=== PATIENT | female | born 1930 | race Caucasian/White ===

== ENCOUNTER 2016-08-07 10:40 | Inpatient (IN) | payer MEDICARE, BC ==
[~2016-08-07] VITALS: Ht 170.2 cm; Wt 102.3 kg
--- NOTE | ~2016-08-07 | OR ---
ADMIT: 08/07/2016 RM/LOC: 314 [facility] MR#: [id number] [address] [address] [place] [address] Operative/Delivery Room Report SEX: F AGE: 85 : 1930 SURGERY DATE: 08/08/2016 SURGEON: Franchesca Avalos MD PREOPERATIVE DIAGNOSIS: Comminuted fracture, right distal femur. POSTOPERATIVE DIAGNOSIS: Comminuted fracture, right distal femur. PROCEDURE: Open reduction and internal fixation, comminuted right distal femur fracture. ANESTHESIA: General. ESTIMATED BLOOD LOSS: 700 mL. EXPORT SALES ASSISTANT: Kyle Moeller PA-C. SECOND CERTIFIED WELDER: ANGÉLICA Galloway. COMPLICATIONS: None. SPECIMEN: None. REPLACEMENT: One unit packed red blood cells. IMPLANT: Synthes 12-hole distal femoral locking plate. DESCRIPTION OF PROCEDURE: This patient was brought to the operating room after satisfactory level of general anesthesia, which was achieved. The patient was placed on the fracture table in the supine position. She was properly positioned. All bony prominences well padded. She was placed in traction, and using C-arm image intensifier, a preliminary close reduction was performed. The extremity was then prepped and draped in the usual sterile fashion. A lateral skin incision was used carrying my incision from the lateral joint line proximally in order to get at least 4 screws above the fracture site. The fracture was comminuted with a large anterolateral butterfly fragment with the instability of the fracture. I first placed a 12- hole plate over the distal femur positioning both AP and lateral planes. I then put in guidewires, which showed that I was parallel to the joint surface and properly positioned on the distal femur. I was then able to reduce the fracture to the plate and hold it with reduction clamps. AP and lateral C-arm images demonstrated a satisfactory reduction in addition to satisfactory position of the implant on both the AP and lateral C-arm images. I first filled all the distal screws and several through the distal metaphyseal area ADMIT: 08/07/2016 RM/LOC: 314 [facility] MR#: [id number] 2620 [facility] [address] [place] [phone] MARIYA DENT [place] [id number] Operative/Delivery Room Report SEX: F AGE: 85 : 1930 as well. Then, I placed 3 locking screws above the fracture site then a single cortical screw proximally. AP and lateral C-arm images then demonstrated a satisfactory reduction. I then placed several screws through the comminuted area lagging the comminuted butterfly fragment to the fracture fragment proximally and fracture fragment distally. Final AP and lateral C- arm images were obtained showing a good reduction and good position of the implant and with AP and lateral C-arm images. Permanent films were obtained, and after thorough irrigation of the wound, the wound was closed with #1 Vicryl in the vastus lateralis fascia, #1 Vicryl in the iliotibial band. Multiple layers of 2-0 Vicryl and subcutaneous tissue and ke in the skin. A sterile dressing was applied, and the patient was then placed in the knee immobilizer and transferred from the operative suite in stable condition. Franchesca Avalos MD/ pavithra JOB #: [id number] CC: Sergio Lees, Attending Physician Sergio Lees, Family Physician
--- NOTE | ~2016-08-07 | ECH ---
Transthoracic Echocardiography Report (TTE) Demographics Patient Name MARIYA DENT Date of Study 08/08/2016 M Patient Number [id number] Visit Number [id number] Date of 1930 Room Number 421 Accession Number [id number] Gender Female Age 85 year(s) Referring Alex Toney MD Sheltered Workshop Worker Maribell Hernandez [facility] Physician Yoana Augustine MD Physician Interpreting Alex Toney Hot Box Checker Physician Supervising Ordering Physician Alex Toney MD/MLP Nurse Stress Medical Transcription Radiology Conclusions Summary Technically difficult exam to perform due to patient supine. The estimated left ventricular ejection fraction is 65%. Mild mitral regurgitation by color Doppler. Aortic valve sclerosis with no hemodynamic significant stenosis. Mild tricuspid regurgitation by color Doppler. There is mild pulmonary hypertension. The pulmonary pressure (RVSP) is 38 mmHg. Procedure Type of Study TTE procedure:Echo Complete SF. Procedure Date Date: 08/08/2016 Start: 10:02 AM Technical Quality: Fair due to patient immobility. Indications:Pre surgical clearance. Additional Indications:EKG changes Height: 67 inches Weight: 194 pounds BSA: 2 m Rhythm: Irregular HR: 110 bpm BP: 124/49 mmHg M-Mode/2D Measurements LV Diastolic Dimension: 3.92 cm LV Systolic Dimension: 2.2 cm LV Septum Diastolic: 0.93 cm LV PW Diastolic: 1.01 cm AO Root Dimension: 2.6 cm Cardiac Output: 5.06 l/min LA Dimension: 3.74 cm Cardiac Index: 2.53 l/min*m RV Diastolic Dimension: 3.67 cm LA volume index: 28 ml/m LVOT: 1.74 cm LVOT VTI: 19.37 cm RV Base: 2.5 cm LV Stroke volume: 46.04 ml RV Length: 5.5 cm LV Stroke volume index: 23.02 ml/m Doppler Measurements AV Peak Velocity: 2.17 m/s MV Peak E-Wave: 1.23 m/s AV Peak Gradient: 18.84 mmHg AV Mean Gradient: 10.59 mmHg LVOT Peak Velocity: 1.12 m/s AV Area (Continuity):1.32 cm PV Peak Velocity: 1.2 m/s TR Velocity:2.85 m/s PV Peak Gradient: 5.79 mmHg TR Gradient:32.53 mmHg Estimated PASP: 37.53 mmHg Estimated RAP:5 mmHg Estimated RVSP: 38 mmHg RA Area: 12.35 cm Findings Left Ventricle The left ventricle is normal in size . Diastolic function indeterminate due to patient's arrhythmia. Right Ventricle Normal right ventricle structure and function. Left Atrium Normal left atrial size. Right Atrium Normal right atrial size. Mitral Valve Normal mitral valve structure and function. Mild mitral regurgitation by color Doppler. Aortic Valve The aortic valve was not well imaged seen best in subcostal view. The aortic valve is mildly sclerotic with peak velocity of 2.17m/s and mean gradient of 11mmHg. Tricuspid Valve Normal tricuspid valve structure and function. Mild tricuspid regurgitation by color Doppler. There is mild pulmonary hypertension. The pulmonary pressure (RVSP) is 38 mmHg. Pulmonic Valve The pulmonic valve is not well visualized. Pericardial Effusion No evidence of pericardial effusion. Miscellaneous Visualized portions of the aortic root and ascending aorta appear normal in size. Pleural Effusion No evidence of pleural effusion. Contractility Score LV regional wall motion:(0-Non visualized 1-Normal 2-Hypokinesis 3-Akinesis 4-Dyskinesis 5-Aneurysm) Signature
--- NOTE | 2016-08-07 19:12 | HP ---
ADMIT: 08/07/2016 RM/LOC: 521 [facility] MR#: [id number] [address] [facility] [address] [place] [phone] [place] [address] History and Physical SEX: F AGE: 85 : 1930 DATE OF SERVICE: CHIEF COMPLAINT: Fall. HISTORY OF PRESENT ILLNESS: The patient is a very poor historian. She has advanced dementia. She does have a son and [id number] at the bedside. They recently back in town from [place]. The exact events that led to this fracture are not known at this time to this physician as this history is not available. She was seen in outside ER at [facility] after a fall at her place of residence at [place]. She was diagnosed with a urinary tract infection as well as a right lower extremity fracture with a distal femur fracture. They do speak with orthopedics who accepts the patient to be transferred to the local ER here. They do see the patient and do an assessment and request that I admit the patient and they will consult. Therefore, I evaluated the patient at her bedside in room #5. She is severely demented and unable to give any substantial history. She does feel comfortable with a blood pressure cuff and does cause her some irritation. She, otherwise, is unable to give any further history. When you ask her where she is from she gives answers such as two days ago, this is her baseline. PAST MEDICAL HISTORY: 1. Alzheimer's dementia. 2. Arthritis. 3. History of gastrointestinal hemorrhage. 4. Essential hypertension. 5. Anxiety. 6. Pedal edema. 7. Hypothyroidism. 8. Muscle weakness. 9. Malnourishment. MEDICATIONS: 1. Zantac. 2. MiraLax. 3. Amoxicillin. 4. Synthroid. 5. Melatonin. 6. Ativan. 7. Tylenol. 8. Ocuvite. 9. Gabapentin. 10.FiberCon. 11.Seroquel. 12.Celexa. 13.Vitamin D. 14.Metoprolol. 15.Namenda. 16.Milk of magnesia. 17.Bisacodyl. ADMIT: 08/07/2016 RM/LOC: 521 [facility] MR#: [id number] [address] [facility] [address] [place], [place] [address] MARIYA DENT [place] [id number] History and Physical SEX: F AGE: 85 : 1930 18.Artificial Tears. ALLERGIES: HYDROXYCHLOROQUINE. FAMILY HISTORY: Unknown. The patient is unaware of any of her history. The son feels that he would have dementia. No known coronary artery disease. SOCIAL HISTORY: She lives in [place]. She does not drink, smoke, or do drugs. REVIEW OF SYSTEMS: Attempted to be obtained and is noted in the HPI. PHYSICAL EXAMINATION: VITAL SIGNS: Blood pressure is 134/81, pulse of 112, respiratory rate is 20, temperature is 96.2, she is 99% on supplemental O2. GENERAL: She is alert. She is oriented x1. Normocephalic and atraumatic. Eyes, extraocular muscles are intact. Pupils equal and responsive to light. No nasal discharge. NECK: Supple. HEART: Tachycardic. LUNGS: Clear to auscultation. ABDOMEN: Soft, nontender. EXTREMITIES: Right lower extremity in a knee immobilizer. LABORATORY DATA: Urinary is noted to have urinary tract infection. White blood cells are 9.7, hemoglobin is 12, platelets are 203. Sodium is 143, potassium is 4, chloride is 107, bicarb is 25, BUN is 22, creatinine is 1.25, glucose 124, calcium is 9.1, total bilirubin 0.2. AST is 25, ALT is 30, alkaline phosphatase is 90, total protein 6.7. ASSESSMENT AND PLAN: 1. Right distal femur fracture. 2. Alzheimer's dementia. 3. Urinary tract infection. 4. Hypovolemia. 5. Hypertension. EKGs read out as atrial flutter; however, I do not believe I agree with that ADMIT: 08/07/2016 RM/LOC: 521 [facility] MR#: [id number] [address] [facility] [address] [place] [phone] [place] [address] History and Physical SEX: F AGE: 85 : 1930 assessment. It looks like she does have potentially some PACs. We will go ahead and just give her a fluid bolus. Get her rehydrated. Give her some antibiotics. We will repeat her EKG. She will have her home medications placed on the chart. Discussed with the family that the nonelective nature of this surgery makes this inherently a high-risk situation. Based on this, she is at high risk for an intermediate risk procedure. We will go ahead and treat her comorbid conditions and get a followup EKG as well. I discussed this plan with the family, who expressed understanding, was in agreement, and had no further questions. Sergio Lees MD/ pavithra JOB #: [id number] CC: Sergio Lees, Attending Physician Sergio Lees, Family Physician Ba Velasco MD
--- NOTE | 2016-08-14 08:14 | CO ---
ADMIT: 08/07/2016 RM/LOC: 421 [facility] MR#: [id number] [address] [facility] [address] [place] [phone] [place] [address] Consultation Report SEX: F AGE: 85 : 1930 DATE OF CONSULTATION: 08/07/2016 ATTENDING PHYSICIAN: Sergio Lees CONSULTING PHYSICIAN: Franchesca Avalos MD CHIEF COMPLAINT: Right femur fracture. HISTORY OF PRESENT ILLNESS: This is an 85-year-old demented female who fell this morning in the bathroom and injured her right leg. She had immediate pain and deformity. She was evaluated up in Emergency Department at [place] with x-rays, diagnostic for right femur fracture, distal third around an existing total knee arthroplasty. She was splinted, stabilized, and transferred to [facility] for definitive orthopedic care. She has advanced Alzheimer dementia and is a poor historian. ALLERGIES: NO KNOWN MEDICAL ALLERGIES. MEDICATIONS: Per med list: 1. Ranitidine 150 mg daily. 2. MiraLAX daily. 3. Synthroid 200 mcg daily. 4. Melatonin 4 mg at bedtime. 5. Ativan 0.5 mg p.r.n. 6. Tylenol 325 mg q.4 p.r.n. 7. Gabapentin 100 mg in the evening. 8. Ocuvite daily. 9. FiberCon daily. 10.Seroquel 25 mg in the a.m. 50 mg at noon and in the p.m. 11.Celexa 20 mg daily. 12.Vitamin D with calcium daily. 13.Metoprolol 25 mg b.i.d. 14.Namenda 10 mg b.i.d. 15.Milk of magnesia p.r.n. 16.Artificial tears p.r.n. MEDICAL HISTORY: Alzheimer's dementia, essential hypertension, anxiety disorder, edema, hypothyroid, osteoarthritis, nutritional deficiency, memory impairment. SOCIAL HISTORY: She lives in [place] in a nursing facility. Nonsmoker and nondrinker. FAMILY HISTORY: Noncontributory. SURGICAL HISTORY: She has as history of right total knee arthroplasty back [place] [address] Topete. REVIEW OF SYSTEMS: Unable to acquire review of systems given the patient's ADMIT: 08/07/2016 RM/LOC: 421 [facility] MR#: [id number] [address] [facility] [address] [place] [phone] [place] [address] Consultation Report SEX: F AGE: 85 : 1930 advanced dementia. PHYSICAL EXAMINATION: GENERAL: This is an otherwise, comfortable appearing, pleasantly demented female who is lying comfortably in the gurney, in the room 5 of the Emergency Department. She is disoriented to place, time, and situation. EXTREMITIES: Exam of the right lower extremity shows that she is in a knee immobilizer. Removal of that shows that her skin is intact. She has moderate swelling about the thigh. She has obvious deformity of external rotation of the lower extremity. She has a well-healed surgical incision consistent with her previous history of total knee arthroplasty. She has pain with any motion. She can dorsi and plantar flex her foot and distinguish light touch, however, given her dementia and this is as far as we can take neurologic exam. SKIN: No open wounds. IMAGING: Reviewed previously obtained x-rays of the right femur showing a comminuted spiral sort of distal 3rd femur fracture that does extend crack down near the distal femur. Cemented total knee arthroplasty in place, appears to be otherwise well seated without complications. ASSESSMENT: Right femur fracture. PLAN: Admitted and stabilized medically by white metal corrosion proofer primary care. As long as she clears the preoperative exam, we would schedule her for open reduction and internal fixation of right femur fracture tomorrow with Dr. Avalos. I am going to repeat AP and lateral views to see if we can get a little bit better picture of the lateral view of the total knee component and see if the fracture extends any farther down. Otherwise it does appear as though the prosthesis is well seated without complication. EDIT: 08/08/2016 0507 njv Kyle Moeller PA-C / Franchesca Avalos MD / pavithra JOB #: [id number] CC: Sergio Lees, Attending Physician Sergio Lees, Family Physician
--- NOTE | 2016-08-15 17:46 | ER ---
ADMIT: 08/07/2016 RM/LOC: 521 [facility] MR#: [id number] [address] [address] [place] [address] Emergency Room Report SEX: F AGE: 85 : 1930 DATE: 08/07/2016 ADDENDUM: This patient comes into the ER because in the retirement today in [place] she fell and fractured her right femur. She was seen in the ER in [place], they did an x-ray, saw a spiral fracture and sent her to our emergency room to see Dr. Avalos. According to the retirement, she had no other injuries, and on physical exam, she is confused, which is normal for her, unable to tell me what occurred. She is tender in the right femur area, increased pain with movement. Pulses are equal bilaterally in the lower extremities. Sensation is intact. She did have normal blood work that came with her from the emergency room in [place]. Chest x-ray in our ER was negative. The patient was seen by Dr. Avalos and will be admitted by Dr. Lees. Please see their dictation for further treatment. ANGÉLICA Tomlinson / Sergio Law MD / tuliol JOB #: [id number] CC: Sergio Lees MD, Attending Physician Sergio Lees MD, Family Physician
[2016-08-16] MEDS ORDERED: CELEXA DPS20 MG PO (12:47)
[2016-08-16] MEDS ORDERED: ASA CHILDREN'S81 MG PO (12:47)
[2016-08-16] MEDS ORDERED: ELIQUIS2.5 MG PO (12:47)
[2016-08-16] MEDS ORDERED: CORDARONE DPS200 MG PO (12:47)
[2016-08-16] MEDS ORDERED: MIRALAX PACKET17 GM PO (12:48)
[2016-08-16] MEDS ORDERED: MELATONIN3 MG PO (12:48)
[2016-08-16] MEDS ORDERED: FIBERCON DPS625 MG PO (12:48)
[2016-08-16] MEDS ORDERED: LOPRESSOR DPS50 MG PO (12:48)
[2016-08-16] MEDS ORDERED: NAMENDA5 MG PO (12:49)
[2016-08-16] MEDS ORDERED: SENOKOT DPS8.6 MG PO (12:49)
[2016-08-16] MEDS ORDERED: PEPCID DPS20 MG PO (12:49)
[2016-08-16] MEDS ORDERED: SEROQUEL25 MG PO (12:49)
[2016-08-16] MEDS ORDERED: SYNTHROID DPS0.2 MG PO (12:50)
[2016-08-16] MEDS ORDERED: SEROQUEL50 MG PO (12:50)
[2016-08-16] MEDS ORDERED: THERAPEUTIC MUL1 TAB PO (12:50)
[2016-08-16] MEDS ORDERED: HYDROCODON-ACE1 EAC4 PO (12:51)
[2016-08-16] MEDS ORDERED: TYLENOL DPS325 MG PO (12:51)
[2016-08-16] MEDS ORDERED: DUONEB DPS3 ML IH (12:51)
[2016-08-16] MEDS ORDERED: DULCOLAX-DPS10 MG PR (12:51)
[2016-08-16] MEDS ORDERED: VIBRAMYCIN-DPS100 M2 PO (12:52)
[2016-08-16] MEDS ORDERED: AMOXICILLIN500 MG PO (12:53)
--- NOTE | 2016-08-21 18:07 | DS ---
ADMIT: 08/07/2016 RM/LOC: 420 [facility] MR#: [id number] 2620 [facility] [address] [place] [phone] [place] [address] Discharge Summary SEX: F AGE: 85 : 1930 ADMISSION DATE: 08/07/2016 DISCHARGE DATE: 08/15/2016 CONSULTATIONS: 1. Lukas Johnson M.D. with Cardiology. 2. Franchesca Avalos M.D. with Orthopedic Surgery. FINAL DIAGNOSES: 1. Right distal femur fracture. 2. Alzheimer's dementia. 3. Urinary tract infection. 4. Atrial fibrillation with RVR (rapid ventricular response). 5. Postoperative open reduction internal fixation right distal femur fracture. 6. Healthcare associated pneumonia. 7. Hypoxic respiratory failure. 8. Poor p.o. intake. 9. Hospice services. REASON FOR ADMISSION: Please see history and physical; however briefly, Melia is admitted for surgical intervention of a distal right femur fracture. HOSPITAL COURSE: She was admitted to the service of [facility] under the care of myself, Sergio Lees MD., diagnosed with a urinary tract infection as well as preoperative atrial fibrillation. She received cardiology consultation prior to OR. Did discuss the risks and benefits with family for surgical intervention as well as outcome expectations if no surgical intervention is completed. We do proceed to OR. The patient does develop the above diagnoses postoperatively. She actually improves nicely through the postoperative events; however, she was critical at various occasions. She does stabilize; however, Melia no longer wants to eat or drink much. The family does not have any further interest in further interventions for life prolonging measures. They would just like her to be comfortable. She does receive Supportive Care consult and ultimately does transition to Hospice services at [facility] under the care of Dr. Velasco. DISPOSITION: [facility] with Hospice. DISCHARGE CONDITION: Stable for hospice. ADMIT: 08/07/2016 RM/LOC: 420 [facility] MR#: [id number] [address] [address] [place] [address] Discharge Summary SEX: F AGE: 85 : 1930 DISCHARGE MEDICATIONS: See the medication reconciliation, which is reviewed and accurate. DISCHARGE INSTRUCTIONS: Discharge to [facility] for hospice on the above medication reconciliation. Follow up with Dr. Velasco pcolt and should maintain a DNR/DNI and they can have PT and OT work with her as well. However, they will predominantly focus on comfort. Discussed this plan, were in agreement, and had no further questions. Thirty minutes spent on discharge activities of this patient. Sergio Lees MD/ njv JOB #: [id number] CC: Sergio Lees MD, Attending Physician Sergio Lees MD, Family Physician
--- NOTE | 2016-08-25 17:23 | CO ---
ADMIT: 08/07/2016 RM/LOC: 421 [facility] MR#: [id number] 2620 [facility] [address] [place] [phone] [place] [address] Consultation SEX: F AGE: 85 : 1930 DATE OF CONSULTATION: 08/08/2016 ATTENDING PHYSICIAN: Sergio Lees CONSULTING PHYSICIAN: Lukas Johnson MD REASON FOR CONSULTATION: Newly diagnosed AFib on preop evaluation. HISTORY OF PRESENT ILLNESS: Melia is an 85-year-old female admitted for new distal right femur fracture, which occurred yesterday. She had a fall yesterday morning and was taken to the [facility] ER. She was then transferred to [place] for further orthopedic management. Unfortunately, we are unable to gather much of any information from the patient due to Alzheimer's dementia. She has no documented cardiac history. On admission, she was noted to have atrial fibrillation with rapid ventricular response. PAST MEDICAL HISTORY: This is obtained from the chart and includes: Alzheimer's dementia, osteoarthritis, anxiety, hypothyroidism, and malnutrition. PRIOR SURGERIES: Right total knee replacement in 2006. FAMILY HISTORY: Unobtainable from the patient. Per the available medical record, is noncontributory. SOCIAL HISTORY: Information from medical record reveals she lives in [place], [place]. HOME MEDICATIONS: From available record include: 1. Zantac. 2. MiraLax. 3. Amoxicillin. 4. Synthroid. 5. Melatonin. 6. Ativan. 7. Tylenol. 8. Ocuvite. 9. Gabapentin. 10.FiberCon. 11.Seroquel. 12.Celexa. 13.Vitamin D. 14.Metoprolol. 15.Namenda. 16.Milk of magnesia. 17.Bisacodyl. 18.Artificial tears. ALLERGIES: HYDROXYCHLOROQUINE. ADMIT: 08/07/2016 RM/LOC: 421 [facility] MR#: [id number] [facility] [address] [place] [phone] [place] [address] Consultation SEX: F AGE: 85 : 1930 REVIEW OF SYSTEMS: Unobtainable due to the patient's Alzheimer's dementia. PHYSICAL EXAMINATION: VITAL SIGNS: Blood pressure 124/49, pulse 112, respirations 16, temperature 97.4, and oxygen saturation 93% on supplemental O2. Weight 189 pounds. SKIN: [place], warm, and dry. EYES: Sclerae clear. No xanthelasmas. ENT: Oral mucosa is pink and moist. No jugular venous distention or carotid bruits. CHEST: Respirations are even and unlabored. Lungs are clear to auscultation. No crackles. HEART: Irregularly irregular. Normal S1, S2. No murmurs, rubs or gallops. ABDOMEN: Soft and nontender. Obese. MUSCULOSKELETAL: Brace present on right leg. EXTREMITIES: Peripheral pulses palpable. No clubbing or cyanosis. No edema on left lower extremity, mild edema on right lower extremity. PSYCHIATRIC: Alert, not oriented. LABORATORY DATA: She was noted to have a UTI on admission. Hemoglobin is 9.5, hematocrit 31.5, WBC 10.5, and platelets 183. Sodium is 146, potassium 4.6, chloride 112, bicarb 28, urea 25, creatinine 1.1, glucose 119. EKG: reveals atrial fibrillation with rapid ventricular response. Chest x-ray performed 08/07/2016 revealing an abnormal opacity in the medial aspect of the right upper lobe, extending towards the right hilar region, questionable representing right upper lobe pneumonia versus pulmonary mass. ASSESSMENT: 1. Newly diagnosed atrial fibrillation. 2. Right femur fracture. 3. Alzheimer's dementia. 4. Anemia. 5. Questionable pulmonary mass. RECOMMENDATIONS: It is unclear at this point if the atrial fibrillation is new. Our current strategy is rate control and anticoagulation postoperatively if okay with Surgery. We will order an echocardiogram and cardiac enzymes preoperatively. We will continue Cardizem and add Lopressor 2.5 mg IV every 2 hours as needed for sustained heart rate greater than 110. She is at moderate risk for surgery mostly due to dementia. ANGÉLICA Merino Student / Lukas Johnson MD / pavithra JOB #: [id number] CC: Sergio Lees, Attending Physician ADMIT: 08/07/2016 RM/LOC: 421 [facility] MR#: [id number] [address] [place] [phone] [place] [address] Consultation SEX: F AGE: 85 : 1930 Sergio Lees, Family Physician
== END 2016-08-15 13:51 | DRG 480 ==
LOC: ER 10:40 → 5MS 11:13 → 3ICU 11:13 → 4PCU 11:13 → 3ICU 08-08 18:04 → 4PCU 08-12 16:08
PROVIDERS: ADMIT Internal Medicine
DX: S72.401A Unspecified fracture of lower end of right femur, initial encounter for closed fracture (principal); J18.9 Pneumonia, unspecified organism; J96.91 Respiratory failure, unspecified with hypoxia; A41.9 Sepsis, unspecified organism; N17.9 Acute kidney failure, unspecified; I95.9 Hypotension, unspecified; G30.9 Alzheimer's disease, unspecified; F05 Delirium due to known physiological condition; E46 Unspecified protein-calorie malnutrition; N39.0 Urinary tract infection, site not specified; E87.0 Hyperosmolality and hypernatremia; D62 Acute posthemorrhagic anemia; I48.91 Unspecified atrial fibrillation; E86.1 Hypovolemia; R91.8 Other nonspecific abnormal finding of lung field; F02.80 Dementia in other diseases classified elsewhere, unspecified severity, without behavioral disturbance, psychotic disturbance, mood disturbance, and anxiety; E03.9 Hypothyroidism, unspecified; I10 Essential (primary) hypertension; W19.XXXA Unspecified fall, initial encounter; M19.90 Unspecified osteoarthritis, unspecified site; F41.9 Anxiety disorder, unspecified; E87.6 Hypokalemia; Z66 Do not resuscitate; Z96.651 Presence of right artificial knee joint